=== PATIENT | female | born 1940 | race Caucasian/White ===

== ENCOUNTER 2018-06-04 06:51 | Outpatient (CLI) | payer MEDICARE ==
--- NOTE | 2018-06-04 10:05 | ULT ---
RIGHT UPPER QUADRANT ULTRASOUND: Date: 06/04/18 HISTORY: Right upper quadrant pain. FINDINGS: The liver, pancreas, and right kidney appear normal. No gallstones, gallbladder wall thickening, or p ericholecystic fluid is seen. There is a nonshadowing immobile echogenic focus arising from the gallb ladder wall consistent with polyp measuring about 3.0 mm. No free fluid is seen in Morison's pouch. IMPRESSION: 3.0 mm gallbladder polyp. POS: [facility]
== END 2018-06-04 06:52 | disposition home or self-care (01) ==
LOC: SCSULT 06:51
PROVIDERS: ATTEND Family Medicine
DX: R10.11 Right upper quadrant pain (principal); K82.4 Cholesterolosis of gallbladder
CPT/HCPCS: 76705

== ENCOUNTER 2018-06-11 15:54 | Outpatient (CLI) | payer MEDICARE ==
[2018-06-11 17:19] LABS: #Eosinphils 0.2 thou/uL (0.0-0.7); #Monocytes 0.5 thou/uL (0.11-0.59); #Neutrophils 2.9 thou/uL (1.40-6.50); %Basophils 0.3 % (0.0-1.0); %Eosinophils 4.1 % (0.0-10.0); %Lymphocytes 35.9 % (21.0-51.0); %Monocytes 9.2 % (0.0-10.0); %Neutrophils 50.6 % (42.0-75.0); Hemoglobin 14.5 g/dL (12.0-16.0); Mean Corpuscular HGB CONC 35.1 g/dL (32.0-36.0); Mean Corpuscular Hemoglobin 31.2 pg (27.0-31.0); Mean Corpuscular Volume 88.9 fL (78.0-98.0); Mean Platelet Volume 8.5 fL (7.4-10.4); Platelet Count 171 thou/uL (130-400); RBC Distribution Width 11.4 % (11.5-14.5); Red Blood Cell (RBC) Count 4.64 mill/uL (4.20-5.40); White Blood Cell (WBC) Count 5.7 thou/uL (4.8-10.8)
[2018-06-11 17:41] LABS: ALT (SGPT) 20 U/L (8-55); AST (SGOT) 18 U/L (5-34); Albumin 4.3 g/dL (3.4-4.8); Alkaline Phosphatase 90 U/L (40-150); Anion Gap 12 mmol/L (10-20); BUN (Urea Nitrogen) 16 mg/dL (9.8-20.1); Bilirubin, Direct 0.1 mg/dL (0.1-0.3); Bilirubin, Total 0.3 mg/dL (0.2-1.2); Calc. Creatinine Clearance 0 mL/min (70-130); Calcium 9.4 mg/dL (7.8-10.44); Carbon Dioxide 25 mmol/L (23-31); Chloride 107 mmol/L (98-107); Estimated GFR-MDRD 75; Globulin 2.2 g/dL (2.4-3.5); Glucose 110 mg/dL (83-110); Potassium 3.6 mmol/L (3.5-5.1); Protein, Total 6.5 g/dL (6.0-8.3); Sodium 140 mmol/L (136-145)
--- NOTE | 2018-06-12 12:16 | EKG ---
Test Reason : Blood Pressure : / mmHG Vent. Rate : 074 BPM Atrial Rate : 074 BPM P-R Int : 130 ms QRS Dur : 094 ms QT Int : 400 ms P-R-T Axes : 052 048 022 degrees QTc Int : 444 ms Normal sinus rhythm Anterior infarct , age undetermined cannot be excluded Borderline ECG Confirmed by AFIA MYERS ([id number]) on 06/12/2018 12:16:04 PM Referred By: VALDEMAR Confirmed By:AFIA MYERS
== END 2018-06-11 15:55 | disposition home or self-care (01) ==
LOC: LABBT 15:54
PROVIDERS: ATTEND Surgery
DX: Z01.818 Encounter for other preprocedural examination (principal); K82.4 Cholesterolosis of gallbladder
CPT/HCPCS: 80053; 80076; 85025; 93005; 93010

== ENCOUNTER 2018-06-16 07:30 | Day surgery (SDC) | payer MEDICARE ==
[2018-06-11 16:11] VITALS: BMI 25.4
[2018-06-16] MEDS ORDERED: Sodium Chloride 0.9% 100 ML ONE (07:53)
[2018-06-16] MEDS ORDERED: cefOXitin 2 GM VIAL ONE (07:53)
[2018-06-16] MEDS ORDERED: Bupivacaine/Epinephrine 0.25% 30 ML VIAL ONE (08:13)
[2018-06-16] MEDS ORDERED: Fentanyl 100 MCG/2 ML VIAL ONE ×2 (08:38→09:53)
--- NOTE | 2018-06-16 09:56 | OP ---
PREOPERATIVE DIAGNOSIS: Chronic cholecystitis. SURGEON: Julio Cesar Delatorre M.D. PROCEDURE PERFORMED: Laparoscopic cholecystectomy. INDICATIONS: The patient is a 77-year-old female, who has been having episodic right upper quadrant pain radiating to the back, worse after eating. Ultrasound showed a gallbladder polyp. FINDINGS: She had a relatively small cystic duct caliber, minimal inflammation. PROCEDURE IN DETAIL: After informed consent was obtained, the patient was taken to the operating ernie m and given general endotracheal anesthesia. She was placed in the supine position. The abdomen was prepped and draped in usual fashion. Local anesthesia infiltrated subcutaneously and deep. A subum bilical incision was performed. The subcu divided sharply. Fascia grasped two stay sutures of 0 Dale ryl placed to either side of midline. Midline incised. Digital palpation revealed no local adhesion s. A blunt 10-12 mm trocar inserted. Pneumoperitoneum was created to a pressure of 15 mmHg. Zero d egree laparoscope inserted under direct vision, three 5 mm ports placed subcostally. Gallbladder gra sped advanced superiorly. The peritoneum was lysed distally to expose the cystic duct artery and cri tical view. The artery and duct were triply ligated with Hemoclips and divided. The gallbladder was removed from its fossa utilizing electrocautery, removed from the abdomen through the umbilical port . Hemostasis was assured. Trocars and retractors removed. The fascia closed with interrupted 0 Dale ryl suture. The skin closed with interrupted 4-0 Rapide. Steri-Strips applied. Sterile bandage edgardo lied. The patient tolerated the procedure well and was transferred to recovery in good condition. S ponge and needle count verified correct x2.
[2018-06-16] MEDS ORDERED: Morphine 4 MG/ML VIAL ONE ×2 (11:22→12:23)
[2018-06-16] MEDS ORDERED: Glycopyrrolate 0.2 MG/ML 5 ML SYRINGE ONE (13:42)
[2018-06-16] MEDS ORDERED: Lidocaine 1% PF 5 ML VIAL ONE (13:42)
[2018-06-16] MEDS ORDERED: Ondansetron HCl/PF 4 MG/2 ML Vial ONE (13:42)
[2018-06-16] MEDS ORDERED: PROPOFOL 200 MG/20 ML VIAL ONE (13:42)
[2018-06-16] MEDS ORDERED: Ketorolac Tromethamine 30 MG/ML VIAL ONE (13:42)
[2018-06-16] MEDS ORDERED: PHENYLEPHRINE-NS 100 MCG/ML 10 ML SYRINGE ONE (13:42)
[2018-06-16] MEDS ORDERED: Dexamethasone 20 MG/5 ML VIAL ONE (13:42)
== END 2018-06-16 13:30 | disposition home or self-care (01) ==
LOC: SDC 07:30
PROVIDERS: ATTEND Surgery
PROC: 0FT44ZZ Resection of Gallbladder, Percutaneous Endoscopic Approach (ICD-10-PCS; principal; 2018-06-16)
DX: K81.1 Chronic cholecystitis (principal); E78.00 Pure hypercholesterolemia, unspecified; Z79.82 Long term (current) use of aspirin; Z79.899 Other long term (current) drug therapy
CPT/HCPCS: 88304; 96374; J0694; J2270; J3010; J7050

== ENCOUNTER 2018-06-16 20:26 | Emergency (ER) | payer MEDICARE ==
[2018-06-16 21:05] LABS: #Lymphocytes 0.9 thou/uL (1.20-3.40); #Monocytes 0.3 thou/uL (0.11-0.59); #Neutrophils 7.3 thou/uL (1.40-6.50); %Basophils 0.1 % (0.0-1.0); %Lymphocytes 10.1 % (21.0-51.0); %Monocytes 3.3 % (0.0-10.0); %Neutrophils 86.4 % (42.0-75.0); Hemoglobin 14.7 g/dL (14.0-18.0); Mean Corpuscular HGB CONC 34.7 g/dL (32.0-36.0); Mean Corpuscular Hemoglobin 31.1 pg (27.0-31.0); Mean Corpuscular Volume 89.7 fL (78.0-98.0); Platelet Count 182 thou/uL (130-400); RBC Distribution Width 11.5 % (11.5-14.5); Red Blood Cell (RBC) Count 4.73 mill/uL (4.70-6.10); White Blood Cell (WBC) Count 8.5 thou/uL (4.8-10.8)
[2018-06-16 21:26] LABS: ALT (SGPT) 32 U/L (8-55); AST (SGOT) 31 U/L (5-34); Albumin 4.3 g/dL (3.4-4.8); Alkaline Phosphatase 83 U/L (40-150); Anion Gap 12 mmol/L (10-20); BUN (Urea Nitrogen) 12 mg/dL (8.4-25.7); Bilirubin, Total 0.6 mg/dL (0.2-1.2); Calc. Creatinine Clearance 0 mL/min (70-130); Calcium 9.6 mg/dL (7.8-10.44); Carbon Dioxide 24 mmol/L (23-31); Chloride 105 mmol/L (98-107); Estimated GFR-MDRD Greater than 90; Globulin 2.2 g/dL (2.4-3.5); Glucose 163 mg/dL (83-110); Lipase 10 U/L (8-78); Protein, Total 6.5 g/dL (5.8-8.1); Sodium 137 mmol/L (136-145)
== END 2018-06-16 22:14 | disposition home or self-care (01) ==
LOC: EDSEX → ERS 20:26 → MERGE 20:26 → ERS 22:14
DX: R14.0 Abdominal distension (gaseous) (principal); R10.11 Right upper quadrant pain; I10 Essential (primary) hypertension; E78.00 Pure hypercholesterolemia, unspecified; Z79.899 Other long term (current) drug therapy; Z79.82 Long term (current) use of aspirin
CPT/HCPCS: 36415; 80053; 83690; 85025; 99284

== ENCOUNTER 2018-06-21 09:58 | Emergency (ER) | payer MEDICARE ==
[2018-06-21] MEDS ORDERED: predniSONE 20 MG TAB ONE ×2 (10:29)
== END 2018-06-21 10:28 | disposition home or self-care (01) ==
LOC: SCSER 09:58
DX: L23.1 Allergic contact dermatitis due to adhesives (principal); E03.9 Hypothyroidism, unspecified; E78.5 Hyperlipidemia, unspecified; I10 Essential (primary) hypertension
CPT/HCPCS: 99282; J7506

== ENCOUNTER 2021-02-26 10:58 | Outpatient (CLI) | payer MEDICARE | END 2021-02-26 10:59 | disposition home or self-care (01) | LOC: BICMAMMO 10:58 | PROVIDERS: ATTEND Family Medicine | DX: Z12.31 Encounter for screening mammogram for malignant neoplasm of breast (principal) | CPT/HCPCS: 77063; 77067 ==

== ENCOUNTER 2022-03-07 09:55 | Outpatient (CLI) | payer MEDICARE | END 2022-03-07 09:56 | disposition home or self-care (01) | LOC: BICMAMMO 09:55 | PROVIDERS: ATTEND Family Medicine | DX: Z12.31 Encounter for screening mammogram for malignant neoplasm of breast (principal); Z80.3 Family history of malignant neoplasm of breast | CPT/HCPCS: 77063; 77067 ==

== ENCOUNTER 2024-03-30 09:32 | Outpatient (CLI) | payer MEDICARE | END 2024-03-30 09:33 | disposition home or self-care (01) | LOC: BICMAMMO 09:32 | PROVIDERS: ATTEND Family Medicine | DX: Z12.31 Encounter for screening mammogram for malignant neoplasm of breast (principal); Z80.3 Family history of malignant neoplasm of breast | CPT/HCPCS: 77063; 77067 ==

== ENCOUNTER 2025-04-01 10:41 | Outpatient (CLI) | payer MEDICARE | END 2025-04-01 10:42 | disposition home or self-care (01) | LOC: NM 10:41 | PROVIDERS: ATTEND Physician Assistant | DX: Z47.1 Aftercare following joint replacement surgery (principal); Z96.651 Presence of right artificial knee joint | CPT/HCPCS: 78315; A9503 ==